=== PATIENT | female | born 1955 | race Caucasian/White ===

== ENCOUNTER 2016-07-28 11:56 | Emergency (ER) | payer OTHER ==
[~2016-07-28] VITALS: Ht 162.6 cm; Wt 68.0 kg
--- NOTE | 2016-07-28 12:28 | PHYS DOC ---
Past Medical History Past Medical History: Anxiety, GERD, Hypothyroid, Other Additional Past Medical Histor: IBS Past Surgical History: Hysterectomy, Other Additional Past Surgical Histo: back sx Alcohol Use: Occasionally Drug Use: None Adult General Chief Complaint Chief Complaint: ANXIETY/PANIC ATTACK HPI HPI Patient is a 61 year old female brought to the ED by her with the complaint of numbness and tingling in her face and both hands that started shortly prior to arrival. The patient has a history of anxiety and she believe she is having an anxiety attack. She feels shaky and numb. She denies shortness of air, denies any pain anywhere. She has a history of anxiety and takes Lexapro 5 mg daily. She took it today just a few minutes before the symptoms began. She does not take any short acting anti-anxiety medication. She doesn't know why she might of had this happen today. The patient is in town from [place]. She was supposed to see a concert last night but it was canceled due to weather. She did have a few beers last night. This morning they went to eat at [facility]. She had decaf coffee. She talked to her daughter on the phone and they went out to the car to get ready to drive back to [place]. She then took her morning doses of Lexapro 5 mg, Otezla, calcium and multivitamin. She then began to feel funny, her face and hands feel numb and tingly and she feels shaky and nauseated. Her symptoms are not worse on one side or the other. She has no weakness. Patient states she just recently had a physical exam and her doctor said she was doing well. Additional medicines include Synthroid and Prilosec which she has taken as prescribed. She did recently have her thyroid level checked and her doctor said it needs to be rechecked in 6 months. She also recently had upper and lower endoscopy and has reflux and takes Prilosec for that. PCP Dr. Ana Solares in [place] Review of Systems Review of Systems Constitutional: Denies fever or chills [] Eyes: Denies change in visual acuity, redness, or eye pain [] HENT: Denies nasal congestion or sore throat [] Respiratory: Denies cough or shortness of breath [] Cardiovascular: Denies chest pain GI: Some nausea, no vomiting : Denies dysuria or hematuria [] Musculoskeletal: Denies back pain or joint pain [] Integument: Denies rash or skin lesions [] Neurologic: Denies headache, focal weakness or focal numbness Allergies Allergies Allergies Coded Allergies Type Severity Reaction Last Updated Verified caffeine Allergy Intermediate Palpitations 07/28/16 Yes cefuroxime Allergy Intermediate Hives 07/28/16 Yes Uncoded Allergies Type Severity Reaction Last Updated Verified antihistamines Adverse Reaction Intermediate Palpitations 07/28/16 Physical Exam Physical Exam Constitutional: Well developed, well nourished, no acute distress, non-toxic appearance. Alert, mentating normally. HENT: Normocephalic, atraumatic, bilateral external ears normal, nose normal. [ ] Eyes: conjunctiva normal, no discharge. [] Neck: Normal range of motion, no stridor. [] Cardiovascular:Heart rate regular rhythm, no murmur , nontoxic and cardiac Lungs & Thorax: Bilateral breath sounds clear to auscultation [] Skin: Warm, dry, no erythema, no rash. [] Extremities: No tenderness, no cyanosis, no clubbing, ROM intact, no edema. [] Neurologic: Alert and oriented X 3, normal motor function, normal sensory function, no focal deficits noted. [] Current Patient Data Vital Signs Vital Signs Date Time Temp Pulse Resp B/P (MAP) Pulse Ox O2 Delivery O2 Flow Rate FiO2 07/28/16 12:05 97.7 89 18 186/91 (122) 98 Room Air 97.7 EKG EKG 12-lead EKG read by me. Sinus rhythm. Heart rate 70. There are no acute ST or T wave changes indicative of ischemia or infarction. No rhythm disturbances. No STEMI. 1243 [] Radiology/Procedures Radiology/Procedures [] Course & Med Decision Making Course & Med Decision Making Pertinent Labs and Imaging studies reviewed. (See chart for details) 61-year-old female who is in good general health and has a history of anxiety presents with numb and tingly sensation on both sides of her face and both hands , feeling shaky and nauseated. She believes her symptoms are due to anxiety but wants to make sure it was not something else. Due to her nonfocal distribution of symptoms I reassured her that it does not sound like anything else. When I entered the room the patient's heart rate was 95, after we visited a few minutes it was down in the 70s. Patient and her are driving back to [facility] so she would feel more comfortable getting a couple things checked out so I will order EKG and i-STAT's, she is agreeable to that plan. EKG normal. I-STAT normal. The patient was given a copy of these to take with her since she is from [place]. [] Dragon Disclaimer Dragon Disclaimer This electronic medical record was generated, in whole or in part, using a voice recognition dictation system. Departure Departure Impression: Primary Impression: Anxiety attack Disposition: 01 HOME, SELF-CARE Condition: IMPROVED Patient Instructions: Anxiety and Panic Attacks, [id number] Additional Instructions: As we discussed, continue all of your medications as prescribed. If your symptoms persist, see your doctor to discuss. Make sure you are well hydrated and well rested. BEL RO MD Jul 28, 2016 12:28
--- NOTE | 2016-07-28 12:49 | EKG ---
[facility] [address] [place] [address] Test Date: 2016-07-28 Test Time: 12:43:16 Pat Name: BEATA PALAICO Department: Room: Gender: F Independent Consultant: : 1955 Requested By: BEL RO Order Number: [id number] Reading MD: Christopher Gonzalez Measurements Intervals [place] Rate: 70 P: 24 VA: 146 QRS: 16 QRSD: 74 T: 14 QT: 388 QTc: 422 Interpretive Statements SINUS RHYTHM QRS(T) CONTOUR ABNORMALITY CONSIDER ANTEROLATERAL MYOCARDIAL DAMAGE T ABNORMALITY IN ANTEROSEPTAL LEADS RI6.01 Unconfirmed report No previous ECG available for comparison Electronically Signed On 07-29-2016 11:05:05 CDT by Christopher Gonzalez
[2016-07-28 13:00] VITALS: BP 151/70
== END 2016-07-28 13:10 | disposition home or self-care (01) ==
LOC: ER 11:56
DX: F41.9 Anxiety disorder, unspecified (principal); E03.9 Hypothyroidism, unspecified; K21.9 Gastro-esophageal reflux disease without esophagitis; K58.9 Irritable bowel syndrome, unspecified; Z88.8 Allergy status to other drugs, medicaments and biological substances; Z90.710 Acquired absence of both cervix and uterus
CPT/HCPCS: 36415; 93005; 99283-25